=== PATIENT | female | born 1980 | race Caucasian/White ===

== ENCOUNTER 2017-04-12 19:32 | Emergency (ER) | payer OTHER ==
[~2017-04-12] VITALS: Ht 172.7 cm; Wt 68.0 kg
[~2017-04-12 19:32] MED LIST: BETH10 OR; LEVO.05 PO; OMEP20TA PO; VARE1 PO
[2017-04-12 19:36] VITALS: BP 169/97; PULSE 110; RESP 16; TEMP 97.8; O2SAT 97
[2017-04-12] MEDS ORDERED: LEVO.05 PO (19:55)
[2017-04-12] MEDS ORDERED: SODIUM CHLOR 0.9% 1000 ML INJ 1,000 ML IV ONE (19:58)
[2017-04-12] MEDS ORDERED: diphenhydrAMINE HCL 50 MG/ML VIAL IVP ONE (20:00)
[2017-04-12] MEDS ORDERED: MORPHINE SULFATE 4 MG/ML INJ IV PUSH ONE (20:00)
[2017-04-12] MEDS ORDERED: PROCHLORPERAZINE INJ 10 MG/2 ML VIAL IVP ONE (20:00)
[2017-04-12] MEDS ORDERED: SODIUM CHLORIDE 0.9% FLUSH 10 ML FLUSH IVF PRN (20:00)
--- NOTE | 2017-04-12 20:07 | PD ---
HPI Chief Complaint: Headache Time Seen by Provider: 19:40 Travel History International Travel<30 days: No Contact w/Intl Traveler<30days: No Traveled to known affect area: No History of Present Illness HPI The patient is a 36-year-old female who presents emergency department for headache. The patient states she developed a headache approximately one hour prior [place] the beach. The patient was drinking alcohol, her third per her, which she suddenly developed a headache. The headache is located bilaterally in the frontal area, wraps around the head in a bandlike fashion, and is the worst headache of her life. The patient does have a history of previous migraines, was seen by neurologist and placed on Topamax, however, had increased intraocular pressure secondary to Topamax in the Topamax was canceled. The patient's pressures significantly improved. The patient does have a history of migraines with aura and photophobia and nausea in the past, however, states the headache is similar to previous migraines but worse in intensity and there is no current or or photophobia. She denies any focal deficits or neck pain. She denies any current chest pain, shortness breath, nausea, vomiting, or abdominal pain. The patient normally takes Relpax, however , did not have her medications at the beach with her. PFSH Past Medical History Diabetes: No Diminished Hearing: No Endocrine: No Gastrointestinal Disorders: Yes (GERD, GASTROPARESIS) Genitourinary: No Hiatal Hernia: No Immune Disorder: No Musculoskeletal: No Neurologic: No Psychiatric: No Reproductive: No Respiratory: No Migraines: Yes Thyroid Disease: Yes (HYPOTHYROID) ?: Not Tubal Ligation: Yes Past Surgical History Abdominal Surgery: Yes (UPPER ENDOSCOPY, HERNIA REPAIR 2003) Cardiac Surgery: No Ear Surgery: No Endocrine Surgery: No Eye Surgery: No Genitourinary Surgery: No Joint Replacement: No Oral Surgery: No Pacemaker: No Thoracic Surgery: No Social History Alcohol Use: Yes (OCCASIONALLY ) Tobacco Use: No (QUIT EAST ) Substance Use: No Allergies-Medications (Allergen,Severity, Reaction): Coded Allergies: Sulfa (Verified Allergy, Severe, DIFFICULTY BREATHING AND HIVES, 01/24/14) Reported Meds & Prescriptions Reported Meds & Active Scripts Active Reported Synthroid (Levothyroxine Sodium) 50 Mcg Tab 50 Mcg PO DAILY Review of Systems Except as stated in HPI: all other systems reviewed are Neg General / Constitutional: No: Fever Eyes: No: Photophobia, Visual changes HENT: Positive: Headaches, No: Neck Pain Cardiovascular: No: Chest Pain or Discomfort Gastrointestinal: No: Nausea, Vomiting, Abdominal Pain Musculoskeletal: No: Weakness Neurologic: Positive: Headache, No: Focal Abnormalities, Paresthesia, Sensory Disturbance Physical Exam Narrative GENERAL: Awake, alert, pleasant 36-year-old female who appears her stated age and is in no acute respiratory distress. She does appear mild discomfort. SKIN: Focused skin assessment warm/dry. HEAD: Atraumatic. Normocephalic. EYES: Pupils equal and round. Pupils are 3 mm bilateral reactive. EOMs are intact. Mild injection bilaterally. ENT: No nasal bleeding or discharge. Mucous membranes pink and moist. NECK: Trachea midline. No JVD. No meningeal signs. CARDIOVASCULAR: Regular rate and rhythm. No murmur appreciated. RESPIRATORY: No accessory muscle use. Clear to auscultation. Breath sounds equal bilaterally. GASTROINTESTINAL: Abdomen soft, non-tender, nondistended. MUSCULOSKELETAL: No obvious deformities. No clubbing. No cyanosis. No edema. NEUROLOGICAL: Awake and alert. No obvious cranial nerve deficits. Motor grossly within normal limits. Normal speech. Nonfocal. Oriented 4. Follows commands without difficulty. PSYCHIATRIC: Appropriate mood and affect; insight and judgment normal. Data Data Last Documented VS Vital Signs Date Time Temp Pulse Resp B/P Pulse Ox O2 Delivery O2 Flow Rate FiO2 04/12/17 20:13 18 99 04/12/17 19:51 105 04/12/17 19:36 97.8 169/[address] Brain W/O Iv Contrast(Rout) (04/12/17 19:58) Ecg Monitoring (04/12/17 19:58) Iv Access Insert/Monitor (04/12/17 19:58) Oximetry (04/12/17 19:58) Sodium Chloride 0.9% Flush (Ns Flush) (04/12/17 20:00) Prochlorperazine Inj (Compazine Inj) (04/12/17 20:00) Diphenhydramine Inj (Benadryl Inj) (04/12/17 20:00) Sodium Chlor 0.9% 1000 Ml Inj (Ns 1000 M (5/28/17 19:58) Morphine Inj (Morphine Inj) (04/12/17 20:00) Ketorolac Inj (Toradol Inj) (04/12/17 20:30) MDM Medical Decision Making Medical Screen Exam Complete: Yes Emergency Medical Condition: Yes Medical Record Reviewed: Yes Interpretation(s) CT of the brain reveals no acute disease Differential Diagnosis Differential diagnosis includes migraine, tension headache, glaucoma, subarachnoid hemorrhage, cluster headache. Narrative Course IV was established and the patient was placed on cardiac telemetry monitoring and continuous pulse oximetry monitoring. The patient was administered Compazine, Benadryl, morphine, and IV fluids. CT of the brain was ordered to rule out subarachnoid hemorrhage. CT of the brain was negative, therefore, the patient was administered Toradol 30 mg intravenously. The patient was reevaluated at 10 PM, her headache had resolved. The patient be discharged home with her . She is advised return if symptoms worsen or progress. Diagnosis Primary Impression: Cephalgia Qualified Code: R51 - Acute nonintractable headache, unspecified headache type Patient Instructions: General Instructions, Narcotic given in the ED Additional Instructions: Follow-up with your primary physician. Return if symptoms worsen or progress. Med/Other Pt SpecificInfo: No Change to Meds Disposition: 01 DISCHARGE HOME Condition: Stable Hunter Lewis MD April 12, 2017 20:07
[2017-04-12 20:13] VITALS: RESP 18; O2SAT 99
--- NOTE | 2017-04-12 20:23 | RADRPT ---
EXAM DATE/TIME: 04/12/2017 20:15 [facility] COMPARISON: No previous studies available for comparison. INDICATIONS : Cephalgia. RADIATION DOSE: 39.80 CTDIvol (mGy) MEDICAL HISTORY : Gastroesophageal reflux disease. Gastroparesis. SURGICAL HISTORY : Tubal ligation. Hernia repair. Uterine ablation. ENCOUNTER: Initial ACUITY: 1 day PAIN SCALE: 6/10 LOCATION: cranial TECHNIQUE: Multiple contiguous axial images were obtained of the head. Using automated exposure control and adj ustment of the mA and/or kV according to patient size, radiation dose was kept as low as reasonably a chievable to obtain optimal diagnostic quality images. FINDINGS: CEREBRUM: The ventricles are normal for age. No evidence of midline shift, mass lesion, hemorrhage or acute in farction. No extra-axial fluid collections are seen. POSTERIOR FOSSA: The cerebellum and brainstem are intact. The 4th ventricle is midline. The cerebellopontine angle i s unremarkable. EXTRACRANIAL: The visualized portion of the orbits is intact. SKULL: The calvaria is intact. No evidence of skull fracture. CONCLUSION: No acute disease. Kaden Loera MD on April 12, 2017 at 20:20 Board Certified Radiologist. This report was verified electronically.
[2017-04-12] MEDS ORDERED: KETOROLAC TROMETHAMINE 30 MG/ML (IVP) VIAL IV PUSH ONE (20:30)
== END 2017-04-12 22:31 | disposition home or self-care (01) ==
LOC: NEPC 19:32
DX: R51 Headache (principal); E03.9 Hypothyroidism, unspecified; Z86.69 Personal history of other diseases of the nervous system and sense organs; Z87.19 Personal history of other diseases of the digestive system; Z87.891 Personal history of nicotine dependence
CPT/HCPCS: 70450; 96374; 96375; 99285; J0780; J1200; J2270; J7030